=== PATIENT | female | born 1965 | race African-American/Black ===

== ENCOUNTER 2017-06-01 12:45 | Emergency (ER) | payer OTHER ==
[~2017-06-01] VITALS: Ht 170.2 cm; Wt 90.9 kg
[~2017-06-01 12:45] MED LIST: ATEN-187 PO; CHOLESTEROL MED; HYDR25TA PO; OMEP20TA2 PO
[2017-06-01] MEDS ORDERED: SIMV-259 PO (12:58)
[2017-06-01] MEDS ORDERED: CARV12 PO (12:58)
[2017-06-01] MEDS ORDERED: LOSA25TA21 PO (12:58)
[2017-06-01 13:34] VITALS: BP 124/79
[2017-06-01] MEDS ORDERED: KETOROLAC TROMETHAMINE 60 MG/2 ML VIAL IM ONE (13:45)
== END 2017-06-01 15:29 | disposition home or self-care (01) ==
LOC: EEVIPCON 12:49 → EMS 12:49
DX: S93.401A Sprain of unspecified ligament of right ankle, initial encounter (principal); M25.461 Effusion, right knee; M79.642 Pain in left hand; F17.210 Nicotine dependence, cigarettes, uncomplicated; I10 Essential (primary) hypertension; E78.00 Pure hypercholesterolemia, unspecified; K21.9 Gastro-esophageal reflux disease without esophagitis; W01.0XXA Fall on same level from slipping, tripping and stumbling without subsequent striking against object, initial encounter; Y93.89 Activity, other specified; Y92.89 Other specified places as the place of occurrence of the external cause; Y99.8 Other external cause status
CPT/HCPCS: 73562; 73610; 96372; 99284; J1885